=== PATIENT | male | born 1940 | race Caucasian/White ===

== ENCOUNTER → 2017-02-12 | Outpatient (CLI) | payer OTHER ==
[~2017-02-12] MED LIST: AMITRIPTYLINE H10 M3 PO; ASPIR 8181 MG PO; BUFFERIN 81 MG81 MG; CELEBREX 200 M200 M1 PO; CIPRO250 M1 PO; CLONIDINE0.1 PO; COLACE 100 MG100 MG PO; COUMADIN6 MG PO; CRESTOR10 MG PO; EFFEXOR XR75 MG PO; FISH OIL 1,001000 M2 PO; FLAGYL500 MG PO; GLUCOSAMINE &1 EACH PO; LISINOPRIL-HCT1 EACH; LUNESTA3 MG PO; MOBIC15 MG PO; NEXIUM40 MG PO; PERCOCET 10-321 EACH; PERCOCET 10-321 EACH PO; PRINZIDE 20-121 EACH PO; TRAMADOL 50 MG50 MG PO; TYLENOL325 MG PO; UNICOMPLEX M TA1 TA1 PO; XARELTO10 MG PO; ZESTORETIC 20-1 EAC3 PO; ZOLOFT100 MG PO
--- NOTE | ~2017-02-12 | EKG ---
[address] [address] ELECTROCARDIOGRAM REPORT Name: VISH CORBIN Room #: [facility] RehabilitationLindsey[facility] [id number] Admission: 02/12/17 Attend Phys: Blaise Gerber MD Discharge: Date of : 40 Report #: [id number] THIS REPORT FOR: //name// [facility] Test Date: 2017-02-12 Test Time: 11:05:16 Pat Name: VISH CORBIN Department: Room: Gender: Bag Cutter: [facility] : 1940 Requested By: Blaise Gerber Order Number: [id number] MD: Fredrick Munroe Measurements Intervals [place] Rate: 59 P: 65 [place]: 155 QRS: 14 QRSD: 107 T: 31 QT: 416 QTc: 413 Interpretive Statements Sinus bradycardia Otherwise no significant abnormality Compared to ECG 09/04/2016 18:39:31 ST (T wave) deviation no longer present Electronically Signed On 02-14-2017 7:35:46 CDT by Fredrick Munroe [email or web address] <ELECTRONICALLY SIGNED> By: Fredrick Munroe MD, [facility] 02/14/17 0735 1105 04 Fredrick Munroe MD, FACC /EPI
== END ==
LOC: RAD 10:21
DX: E11.42 Type 2 diabetes mellitus with diabetic polyneuropathy (principal); J18.9 Pneumonia, unspecified organism